=== PATIENT | male | born 1950 | race Caucasian/White ===

== ENCOUNTER → 2016-07-06 | Outpatient (CLI) | payer MEDICARE, OTHER ==
[2016-07-06 10:00] LABS: BICARBONATE 29.1 MEQ/L (21.0-32.0)
[2016-07-06 10:01] LABS: BLOOD UREA NITROGEN 11 MG/DL (7-18)
[2016-07-06 10:03] LABS: ALT (GPT) 16 U/L (12-78); ANION GAP 8 MEQ/L (5-15); CHLORIDE 104 MEQ/L (98-107); SODIUM (NA) 141 MEQ/L (136-145)
[2016-07-06 10:04] LABS: AST (GOT) 14 U/L (15-37); GLOMERULAR FILTRATION RATE 82 ML/MIN (>89)
[2016-07-06 10:05] LABS: TOTAL BILIRUBIN ADULT 0.3 MG/DL (0.2-1.0)
[2016-07-06 10:06] LABS: ALKALINE PHOSPHATASE 55 U/L (45-117)
[2016-07-06 12:47] LABS: HEMATOCRIT 38.6 % (39.0-51.0); MEAN CELL VOLUME 88.6 FL (80.0-100.0); MEAN CORPUSCULAR HEMOGLOBIN 28.9 PG (27.0-34.0); MEAN CORPUSCULAR HGB CONC 32.6 % (32.0-36.0); PLATELET COUNT 339 TH/MM3 (150-450); RED BLOOD COUNT 4.36 MIL/MM3 (4.50-5.90); RED CELL DISTRIBUTION WIDTH 13.2 % (11.6-17.2); REVIEW FLAG FINAL; WHITE BLOOD COUNT 8.2 TH/MM3 (4.0-11.0)
[2016-07-06 13:42] LABS: WESTERGREN SEDIMENTATION RATE 55 mm/hr (0-20)
== END ==
LOC: PLAB 08:47
PROVIDERS: ATTEND Internal Medicine Rheumatology
DX: M06.89 Other specified rheumatoid arthritis, multiple sites (principal); Z79.899 Other long term (current) drug therapy
CPT/HCPCS: 36415; 80053; 85027; 85652